=== PATIENT | female | born 1955 | race Caucasian/White ===

== ENCOUNTER 2016-10-13 18:16 | Inpatient (IN) | payer OTHER ==
[~2016-10-13] VITALS: Ht 165.1 cm; Wt 83.0 kg
[~2016-10-13 18:16] MED LIST: ALPR1TAB3 PO; AMIT50TA3 PO; ASPI1TAB69 PO; LEVO-168 PO; METF1000 PO; METO50TA11 PO; NITR1CAP37 PO; OMEP40CA2 PO
[2016-10-13 18:17] VITALS: BP 119/91; PULSE 86; RESP 15; TEMP 98.4; O2SAT 98
[2016-10-13 20:40] VITALS: BP 132/60; PULSE 69; RESP 18; O2SAT 99
[2016-10-13] MEDS ORDERED: SODIUM CHLORID 0.9% 500 ML INJ 500 ML IV ONE (20:45)
[2016-10-13] MEDS ORDERED: METOCLOPRAMIDE INJ 10 MG in SODIUM CHLORIDE 0.9% INJ 50 ML IV ONE (20:45)
[2016-10-13] MEDS ORDERED: MECLIZINE HCL 25 MG TAB PO ONE (20:45)
[2016-10-13 21:11] LABS: AUTOMATED NEUTROPHIL # 1.3 TH/MM3 (1.8-7.7); BASOPHIL % 0.6 % (0.0-2.0); EOSINOPHIL # 0.1 TH/MM3 (0-0.4); EOSINOPHIL % 1.8 % (0.0-4.0); HEMATOCRIT 27.1 % (35.0-46.0); HEMO FLAGS DIFF FINAL; LYMPHOCYTE # 2.7 TH/MM3 (1.0-4.8); MEAN CELL VOLUME 63.5 FL (80.0-100.0); MEAN CORPUSCULAR HEMOGLOBIN 18.3 PG (27.0-34.0); MONO % 10.9 % (0.0-8.0); NEUT % 27.7 % (16.0-70.0); PLATELET COUNT 388 TH/MM3 (150-450); RED BLOOD COUNT 4.27 MIL/MM3 (4.00-5.30); RED CELL DISTRIBUTION WIDTH 19.6 % (11.6-17.2); WHITE BLOOD COUNT 4.6 TH/MM3 (4.0-11.0)
[2016-10-13 21:28] LABS: ANION GAP 7 MEQ/L (5-15); AST (GOT) 21 U/L (15-37); BICARBONATE 23.4 MEQ/L (21.0-32.0); BLOOD UREA NITROGEN 18 MG/DL (7-18); CHLORIDE 108 MEQ/L (98-107); GLOMERULAR FILTRATION RATE 55 ML/MIN (>89); POTASSIUM 4.3 MEQ/L (3.5-5.1); SODIUM (NA) 138 MEQ/L (136-145)
[2016-10-13 21:33] LABS: ALKALINE PHOSPHATASE 106 U/L (45-117); ALT (GPT) 27 U/L (10-53); TOTAL BILIRUBIN ADULT 0.3 MG/DL (0.2-1.0)
[2016-10-13 21:45] LABS: MEAN CORPUSCULAR HGB CONC 28.8 % (32.0-36.0)
[2016-10-13] MEDS ORDERED: PHEN37.52 PO (21:51)
[2016-10-13] MEDS ORDERED: CITA20TA4 PO (21:51)
[2016-10-13] MEDS ORDERED: DICL75TA PO (21:51)
[2016-10-13] MEDS ORDERED: AZEL137S EACH NARE (21:51)
[2016-10-13] MEDS ORDERED: PRED20 PO (21:51)
[2016-10-13] MEDS ORDERED: LISI-515 PO (21:51)
[2016-10-13] MEDS ORDERED: MELO-1 PO (21:51)
[2016-10-13] MEDS ORDERED: FISHCAP4 PO (21:51)
[2016-10-13] MEDS ORDERED: BACT800T5 PO (21:51)
[2016-10-13] MEDS ORDERED: SODIUM CHLOR 0.9% 250 ML INJ 250 ML IV ONE ×2 (22:15)
[2016-10-13] MEDS ORDERED: PANTOPRAZOLE INJ 80 MG in SODIUM CHLORIDE 0.9% INJ 100 ML IV SCH (22:15)
[2016-10-13] MEDS ORDERED: PANTOPRAZOLE INJ 80 MG in SODIUM CHLORIDE 0.9% INJ 35 ML IV ONE (22:15)
--- NOTE | 2016-10-13 22:41 | PD ---
HPI Chief Complaint: Dizziness Time Seen by Provider: 20:16 Travel History International Travel<30 days: No Contact w/Intl Traveler<30days: No Traveled to known affect area: No History of Present Illness HPI Patient is a 61-year-old female comes in complaining of dizziness. She says this is been going on for the past few days. She says she feels like the room is spinning around her. This is worse when she gets up from sleeping or moves around. She also complains of some tingling in her hands and her feet. She was told to come in by her family care doctor who she sees in the [facility]. She has had a slight headache. She occasionally feels palpitations. She denies fever or chills. She has noticed dark stools, but denies seeing Rodri blood. PFSH Past Medical History Anxiety: Yes Depression: Yes Cancer: No Cardiovascular Problems: No Chest Pain: No Diabetes: Yes Patient Takes Glucophage: Yes Diminished Hearing: No Endocrine: No Gastrointestinal Disorders: Yes (GERD) GERD: Yes Genitourinary: Yes (frequency) Hepatitis: No Hiatal Hernia: No Hypertension: Yes Immune Disorder: No Kidney Stones: Yes Musculoskeletal: Yes (ARTHRITIS) Neurologic: No Psychiatric: No Reproductive: No Respiratory: No Immunizations Current: No Migraines: Yes Thyroid Disease: Yes Menopausal: Yes Past Surgical History AICD: No Cholecystectomy: Yes Genitourinary Surgery: Yes (RENAL CALC. EXTRACT., BLADDER SUSP.) Gynecologic Surgery: Yes (PARTIAL HYSTERECTOMY) Hysterectomy: Yes (PARTIAL) Joint Replacement: No Pacemaker: No Other Surgery: Yes (BREAST REDUCTION) Social History Alcohol Use: No Tobacco Use: No Substance Use: No Allergies-Medications (Allergen,Severity, Reaction): Coded Allergies: *MDRO Multi-Drug Resistant Organism (Verified Adverse Reaction, Unknown, ) ESBL+ E. coli urine 09/2014. Reported Meds & Prescriptions Reported Meds & Active Scripts Active Reported Lisinopril 20 Mg Tab 20 Mg PO DAILY Fish Oil + D3 (Fish Oil-Cholecalciferol) 1,200-1,000 Mg-Unit Cap 1 Cap PO DAILY Prednisone 20 Mg Tab 20 Mg PO TID Phentermine HCl 37.5 Mg Tab 1 Tab PO DAILY Diclofenac Sodium DR (Diclofenac Sodium) 75 Mg Tabdr 75 Mg PO BID Meloxicam 15 Mg Tab 15 Mg PO DAILY Dymista Nasal [place] (Azelastine-Fluticasone Nasal [place]) 137-50 Mcg [place] 1 [place] EACH NARE DAILY To each nostril. Bactrim DS (Sulfamethoxazole-Trimethoprim) 800-160 Mg Tab 1 Tab PO BID Citalopram (Citalopram Hydrobromide) 20 Mg Tab 20 Mg PO DAILY Metformin (Metformin HCl) 1,000 Mg Tab 1,000 Mg PO BIDPC With meals Levothyroxine (Levothyroxine Sodium) 112 Mcg Tab 112 Mcg PO DAILY Nitrofurantoin Macrocrystal 50 Mg Cap 50 Mg PO DAILY Alprazolam 1 Mg Tab 1 Mg PO DAILY PRN Omeprazole 40 Mg Cap 40 Mg PO DAILY Metoprolol Succinate ER 24 HR (Metoprolol Succinate) 50 Mg Tab 50 Mg PO BID Amitriptyline (Amitriptyline HCl) 50 Mg Tab 50 Mg PO HS Review of Systems Except as stated in HPI: all other systems reviewed are Neg General / Constitutional: No: Fever, Chills Eyes: Positive: Blurred Vision HENT: Positive: Headaches, Lightheadedness Cardiovascular: Positive: Palpitations, No: Chest Pain or Discomfort Respiratory: No: Shortness of Breath Gastrointestinal: No: Nausea, Vomiting Genitourinary: No: Dysuria Musculoskeletal: No: Edema, Pain Skin: No Rash, No Change in Pigmentation Neurologic: Positive: Dizziness Physical Exam Narrative GENERAL: Awake and alert, in no acute distress. SKIN: Focused skin assessment warm/dry. HEAD: Atraumatic. Normocephalic. EYES: Pupils equal and round. No scleral icterus. No nystagmus. ENT: Mucous membranes pink and moist. NECK: Trachea midline. No JVD. CARDIOVASCULAR: Regular rate and rhythm. No murmur appreciated. RESPIRATORY: No accessory muscle use. Clear to auscultation. Breath sounds equal bilaterally. GASTROINTESTINAL: Abdomen soft, non-tender, nondistended. MUSCULOSKELETAL: No obvious deformities. No clubbing. No cyanosis. No edema. NEUROLOGICAL: Awake and alert. No obvious cranial nerve deficits. Motor grossly within normal limits. Normal speech. Normal cerebellar function testing. PSYCHIATRIC: Appropriate mood and affect; insight and judgment normal. Data Data Last Documented VS Vital Signs Date Time Temp Pulse Resp B/P (MAP) Pulse Ox O2 Delivery O2 Flow Rate FiO2 10/13/16 20:40 69 18 132/60 (84) 99 Room Air 8/28/17 18:17 98.4 Orders Orders Iv Access Insert/Monitor (10/13/16 20:40) Complete Blood Count With Diff (10/13/16 20:40) Comprehensive Metabolic Panel (10/13/16 20:40) Troponin I (10/13/16 20:40) Electrocardiogram (10/13/16 ) Ct Brain W/O Iv Contrast(Rout) (10/13/16 ) Sodium Chlorid 0.9% 500 Ml Inj (Ns 500 M (10/13/16 20:45) Meclizine (Antivert) (10/13/16 20:45) Metoclopramide Inj (Reglan Inj) (10/13/16 20:45) Urinalysis - C+S If Indicated (10/13/16 21:55) Type And Screen (10/13/16 22:07) Red Blood Cells (Rbc) (10/13/16 22:07) Sodium Chlor 0.9% 250 Ml Inj (Ns 250 Ml (10/13/16 22:15) Blood Product Administration .UPON TRANSFUSION (10/13/16 22:07) Sodium Chlor 0.9% 250 Ml Inj (Ns 250 Ml (10/13/16 22:15) Pantoprazole Inj (Protonix Inj) (10/13/16 22:15) Pantoprazole Inj (Protonix Inj) (10/13/16 22:15) Admit Order (Ed Use Only) (10/13/16 ) Admit To Inpatient (10/13/16 ) Vital Signs (Adult) Q4H (10/13/16 22:33) Activity Oob With Assistance (10/13/16 22:33) Waiter/Waitress Third Class / Telemetry .CONTINUOUS (10/13/16 22:33) Diet Npo (10/14/16 Breakfast) Sodium Chloride 0.9% Flush (Ns Flush) (10/13/16 22:45) Sodium Chloride 0.9% Flush (Ns Flush) (10/14/16 09:00) Basic Metabolic Panel (Bmp) (10/14/16 06:00) Complete Blood Count With Diff (10/14/16 06:00) Naloxone Inj (Narcan Inj) (10/13/16 22:45) Inpatient Certification (10/13/16 ) Consult Gastroenterology (10/13/16 ) Labs Laboratory Tests Test 10/13/16 20:55 White Blood Count 4.6 TH/MM3 Red Blood Count 4.27 MIL/MM3 Hemoglobin 7.8 GM/DL Hematocrit 27.1 % Mean Corpuscular Volume 63.5 FL Mean Corpuscular Hemoglobin 18.3 PG Mean Corpuscular Hemoglobin Concent 28.8 % Red Cell Distribution Width 19.6 % Platelet Count 388 TH/MM3 Mean Platelet Volume 7.4 FL Neutrophils (%) (Auto) 27.7 % Lymphocytes (%) (Auto) 59.0 % Monocytes (%) (Auto) 10.9 % Eosinophils (%) (Auto) 1.8 % Basophils (%) (Auto) 0.6 % Neutrophils # (Auto) 1.3 TH/MM3 Lymphocytes # (Auto) 2.7 TH/MM3 Monocytes # (Auto) 0.5 TH/MM3 Eosinophils # (Auto) 0.1 TH/MM3 Basophils # (Auto) 0.0 TH/MM3 CBC Comment DIFF FINAL Differential Comment Blood Urea Nitrogen 18 MG/DL Creatinine 1.02 MG/DL Random Glucose 129 MG/DL Total Protein 7.2 GM/DL Albumin 3.5 GM/DL Calcium Level 9.7 MG/DL Alkaline Phosphatase 106 U/L Aspartate Amino Transf (AST/SGOT) 21 U/L Alanine Aminotransferase (ALT/SGPT) 27 U/L Total Bilirubin 0.3 MG/DL Sodium Level 138 MEQ/L Potassium Level 4.3 MEQ/L Chloride Level 108 MEQ/L Carbon Dioxide Level 23.4 MEQ/L Anion Gap 7 MEQ/L Estimat Glomerular Filtration Rate 55 ML/MIN Troponin I LESS THAN 0.02 NG/ML MDM Medical Decision Making Medical Screen Exam Complete: Yes Emergency Medical Condition: Yes Medical Record Reviewed: Yes Interpretation(s) ECG shows normal sinus rhythm at 67, no ST elevation or depression, normal intervals Differential Diagnosis Anemia versus vertigo versus dehydration versus electrolyte abnormality Narrative Course Patient is a 61-year-old female comes in complaining of dizziness. Exam shows no neurologic abnormalities. IV established, labs sent. Labs show hemoglobin of 7.8. Stool is positive for blood. Patient given IV fluids, meclizine, Reglan. Started on Protonix. We will transfuse one unit of blood. Patient will be admitted for further management. HemaPrompt Point of Care Internal Pos. & Neg. Controls: Passed Fecal Specimen Occult Blood: Positive Diagnosis Primary Impression: Symptomatic anemia Additional Impression: Blood in stool Admitting Information Admitting Physician Requests: Admit Condition: Stable Brianda Christianson MD Oct 13, 2016 22:41
[2016-10-13] MEDS ORDERED: SODIUM CHLORIDE 0.9% FLUSH 10 ML FLUSH IV FLUSH PRN (22:45)
[2016-10-13] MEDS ORDERED: NALOXONE HCL 0.4 MG/ML AMP IV PRN (22:45)
--- NOTE | 2016-10-13 22:48 | RADRPT ---
EXAM DATE/TIME: 10/13/2016 21:06 [place] COMPARISON: No previous studies available for comparison. INDICATIONS : Dizziness, right sided cephalgia. RADIATION DOSE: 56.35 CTDIvol (mGy) MEDICAL HISTORY : None SURGICAL HISTORY : None. ENCOUNTER: Initial ACUITY: 2 days PAIN SCALE: 6/10 LOCATION: cranial TECHNIQUE: Multiple contiguous axial images were obtained of the head. Using automated exposure control and adj ustment of the mA and/or kV according to patient size, radiation dose was kept as low as reasonably a chievable to obtain optimal diagnostic quality images. DICOM format image data is available electro nically for review and comparison. FINDINGS: CEREBRUM: The ventricles are normal for age. No evidence of midline shift, mass lesion, hemorrhage or acute in farction. No extra-axial fluid collections are seen. POSTERIOR FOSSA: The cerebellum and brainstem are intact. The 4th ventricle is midline. The cerebellopontine angle i s unremarkable. EXTRACRANIAL: The visualized portion of the orbits is intact. SKULL: The calvaria is intact. No evidence of skull fracture. CONCLUSION: No acute disease. Parish Marie MD on October 13, 2016 at 22:45 Board Certified Radiologist. This report was verified electronically.
[2016-10-14] VITALS (13 sets, daily range): BP systolic 99–119; BP diastolic 55–78; PULSE 64–74; RESP 16–18; TEMP 97–98.7; O2SAT 95–99
[2016-10-14 02:13] LABS: BACTERIA, URINE RARE /hpf; BLOOD, URINE NEG (NEG); COMMENT (UR) CULTURE INDICATED; CULTURE IF INDICATED CULTURE INDICATED; GLUCOSE,URINE NEG (NEG); KETONE, URINE NEG (NEG); MUCUS URINE FEW /lpf (OCC); NITRITE,URINE NEG (NEG); PH, URINE 5.5 (5.0-8.5); SQUAMOUS EPITHELIAL CELL URINE 1 /hpf (0-5); URINE COLOR LIGHT-YELLOW (YELLW/STRAW)
--- NOTE | 2016-10-14 05:11 | HHI.HP ---
HPI Service [facility] Primary Care Physician Leah Agudelo MD Admission Diagnosis symptomatic anemia, blood in stool Diagnoses: Travel History International Travel<30 Days: No Contact w/Intl Traveler <30 Da: No Traveled to Known Affected Are: No History of Present Illness gate attendant via [place] audio line - Patient reported that she was sent from her PCP office for infection, anemia, calcium being high. She reports that for the past few days since Thursday, she has been having vomiting, shortness of breath, dizziness. She also reports of black stools. She states that her vomitus was also black in color. She was also complaining of abdominal pain which she attributed to gas pain. She denies being on any blood thinners apart from a baby aspirin. She denies taking any [id number] Advil or ibuprofen or NSAIDs. She reports history of GI bleed previously for which she takes omeprazole. However upon further questioning, I am not sure whether patient really meant GI bleed or GI ulcers. She states she did have endoscopy a year ago and at that time after endoscopy, the doctor had given her omeprazole. Her GI doctor is Dr. Aurelio Raya Patient also reports a fever. She states she thinks it is because of her urine infection. She states she was prescribed Bactrim as an outpatient for 7 days' duration. She states it should finish today. However she stopped taking it yesterday because she was not feeling well. Denies cough or diarrhea. Patient came to ER with a clinic visit printed out from the doctor's office. This was reviewed. Patient was also having syncopal episodes in the past few days because of systems generalized weakness. Patient's medications list was extensive. This was gone through with her and multiple medications on her doctor's office list are old and patient is no longer taking them. Med reconciliation was therefore updated. Patient Review of Systems Except as stated in HPI: all other systems reviewed are Neg Past Family Social History Past Medical History htn- but bp has been low at home lately dm acid reflux kidney stones thyroid problem- hypothyroidism no heart problem/ no lung problem/ liver problem/ no kidney problem/ no blood clots/ no cancer Past Surgical History lithotripsy cholecystectomy Allergies: Coded Allergies: *MDRO Multi-Drug Resistant Organism (Verified Adverse Reaction, Unknown, ) ESBL+ E. coli urine 09/2014. Family History father- heart problems 2 brothers- with heart problems Social History used to smoke minimally- but quit completely 3 yrs ago no etoh abuse no drugs Physical Exam Vital Signs Vital Signs Date Time Temp Pulse Resp B/P (MAP) Pulse Ox O2 Delivery O2 Flow Rate FiO2 10/14/16 04:34 98.6 74 16 102/75 95 10/14/16 04:21 10/14/16 03:56 98.4 68 16 108/68 96 10/14/16 03:53 98.6 70 16 110/72 96 10/14/16 02:52 98.2 66 18 109/58 97 10/14/16 02:43 98.6 71 18 104/59 96 10/14/16 02:41 68 18 97 Room Air 10/14/16 02:25 98.7 68 18 104/55 99 10/14/16 02:10 98.2 64 18 99/60 97 10/14/16 02:00 98.1 68 18 106/61 (76) 96 Room Air 10/14/16 01:54 98.1 72 18 115/65 96 10/13/16 20:40 69 18 132/60 (84) 99 Room Air 10/13/16 18:17 98.4 86 15 119/91 (100) 98 Physical Exam GENERAL: This is a well-nourished, well-developed patient, in no apparent distress. SKIN: No rashes, ecchymoses or lesions. Cool and dry. HEAD: Atraumatic. Normocephalic. No temporal or scalp tenderness. EYES: No scleral icterus. No injection or drainage. ENT: Nose without bleeding, purulent drainage or septal hematoma. . Airway patent. NECK: Trachea midline. No JVD CARDIOVASCULAR: Regular rate and rhythm without murmurs, gallops, or rubs. RESPIRATORY: Clear to auscultation. Breath sounds equal bilaterally. No wheezes , rales, or rhonchi. GASTROINTESTINAL: Abdomen soft, non-tender, nondistended.. No guarding. MUSCULOSKELETAL: Extremities without clubbing, cyanosis, or edema. No calf tenderness. NEUROLOGICAL: Awake and alert. Motor and sensory grossly within normal limits. Normal speech. Laboratory Laboratory Tests Test 10/13/16 20:55 10/14/16 00:00 White Blood Count 4.6 Red Blood Count 4.27 Hemoglobin 7.8 Hematocrit 27.1 Mean Corpuscular Volume 63.5 Mean Corpuscular Hemoglobin 18.3 Mean Corpuscular Hemoglobin Concent 28.8 Red Cell Distribution Width 19.6 Platelet Count 388 Mean Platelet Volume 7.4 Neutrophils (%) (Auto) 27.7 Lymphocytes (%) (Auto) 59.0 Monocytes (%) (Auto) 10.9 Eosinophils (%) (Auto) 1.8 Basophils (%) (Auto) 0.6 Neutrophils # (Auto) 1.3 Lymphocytes # (Auto) 2.7 Monocytes # (Auto) 0.5 Eosinophils # (Auto) 0.1 Basophils # (Auto) 0.0 CBC Comment DIFF FINAL Differential Comment Blood Urea Nitrogen 18 Creatinine 1.02 Random Glucose 129 Total Protein 7.2 Albumin 3.5 Calcium Level 9.7 Alkaline Phosphatase 106 Aspartate Amino Transf (AST/SGOT) 21 Alanine Aminotransferase (ALT/SGPT) 27 Total Bilirubin 0.3 Sodium Level 138 Potassium Level 4.3 Chloride Level 108 Carbon Dioxide Level 23.4 Anion Gap 7 Estimat Glomerular Filtration Rate 55 Troponin I LESS THAN 0.02 Urine Color LIGHT-YELLOW Urine Turbidity CLEAR Urine pH 5.5 Urine Specific [place] 1.017 Urine Protein NEG Urine Glucose (UA) NEG Urine Ketones NEG Urine Occult Blood NEG Urine Nitrite NEG Urine Bilirubin NEG Urine Urobilinogen LESS THAN 2.0 Urine Leukocyte Esterase SMALL Urine RBC 2 Urine WBC 11 Urine Squamous Epithelial Cells 1 Urine Amorphous Sediment RARE Urine Bacteria RARE Urine Mucus FEW Microscopic Urinalysis Comment CULTURE INDICATED Date/Time Source Procedure Growth Status 10/14/16 00:00 Urine Clean Catch Urine Culture Pending Received Result Diagram: 10/13/[id number]/[id number] Imaging Last [address] 10/13/16 0000 Signed Impressions: Service Date/Time: Thursday, October 13, 2016 21:06 - CONCLUSION: No acute disease. MD Misty Dover VTE Risk Assessment Caprini VTE Risk Assessment: Mod/High Risk (score >= 2) Caprini Risk Assessment Model Point Value = 1 Point Value = 2 Point Value = 3 Point Value = 5 Age 41-60 Minor surgery BMI > 25 kg/m2 Swollen legs Varicose veins or History of unexplained or recurrent spontaneous Oral contraceptives or hormone replacement Sepsis (< 1 month) Serious lung disease, including pneumonia (< 1 month) Abnormal pulmonary function Acute myocardial infarction Congestive heart failure (< 1 month) History of inflammatory bowel disease Medical patient at bed rest Age 61-74 Arthroscopic surgery Major open surgery (> 45 min) Laparoscopic surgery (> 45 min) Malignancy Confined to bed (> 72 hours) Immobilizing plaster cast Central venous access Age >= 75 History of VTE Family history of VTE Factor V Leiden Prothrombin [id number] Lupus anticoagulant Anticardiolipin antibodies Elevated serum homocysteine Heparin-induced thrombocytopenia Other congenital or acquired thrombophilia Stroke (< 1 month) Elective arthroplasty Hip, pelvis, or leg fracture Acute spinal cord injury (< 1 month) Prophylaxis Regimen Total Risk Factor Score Risk Level Prophylaxis Regimen 0-1 Low Early ambulation 2 Moderate Order ONE of the following: *Sequential Compression Device (SCD) *Heparin 5000 units SQ BID 3-4 Higher Order ONE of the following medications: *Heparin 5000 units SQ TID *Enoxaparin/Lovenox 40 mg SQ daily (WT < 150 kg, CrCl > 30 mL/min) *Enoxaparin/Lovenox 30 mg SQ daily (WT < 150 kg, CrCl > 10-29 mL/min) *Enoxaparin/Lovenox 30 mg SQ BID (WT < 150 kg, CrCl > 30 mL/min) AND/OR *Sequential Compression Device (SCD) 5 or more Highest Order ONE of the following medications: *Heparin 5000 units SQ TID (Preferred with Epidurals) *Enoxaparin/Lovenox 40 mg SQ daily (WT < 150 kg, CrCl > 30 mL/min) *Enoxaparin/Lovenox 30 mg SQ daily (WT < 150 kg, CrCl > 10-29 mL/min) *Enoxaparin/Lovenox 30 mg SQ BID (WT < 150 kg, CrCl > 30 mL/min) AND *Sequential Compression Device (SCD) Assessment and Plan Assessment and Plan impression: Symptomatic anemia Upper GI bleed UTIpartially treated Diabetes htn- but bp has been low at home lately acid reflux kidney stones thyroid problem- hypothyroidism Plan: NPO IV hydration. Patient was transfused 2 units of PRBC. GI consult with Dr. Dr. Aurelio Raya. Protonix IV drip. hold asa DVT prophylaxiswith SCD. GI prophylaxison pantoprazole Discussed Condition With patient, ER MD, nursing staff, counter person on [facility] Physician Certification 2 Midnight Certification Type: Admission for Inpatient Services Order for Inpatient Services The services are ordered in accordance with Medicare regulations or non- Medicare payer requirements, as applicable. In the case of services not specified as inpatient-only, they are appropriately provided as inpatient services in accordance with the 2-midnight benchmark. Estimated LOS (days): 2 days is the estimated time the patient will need to remain in the hospital, assuming treatment plan goals are met and no additional complications. Post-Hospital Plan: Home Jordan De La Torre MD Oct 14, 2016 05:11
[2016-10-14] MEDS ORDERED: GLUCAGON 1 MG/ML VIAL OTHER PRN ×2 (05:30→22:45)
[2016-10-14] MEDS ORDERED: DEXTROSE 50% IN WATER 50 ML VIAL(D50) IV PRN ×2 (05:30→22:45)
[2016-10-14] MEDS ORDERED: ALPRAZolam 1 MG TAB PO PRN (06:00)
[2016-10-14] MEDS: SODIUM CHLORIDE 0.9% FLUSH 10 ML FLUSH IV FLUSH SCH ×2 (09:11→21:39)
[2016-10-14] MEDS: LEVOTHYROXINE SODIUM 112 MCG TAB PO SCH (09:12)
[2016-10-14] MEDS: LISINOPRIL 20 MG TAB PO SCH (09:12)
[2016-10-14] MEDS: METOPROLOL SUCCINATE 50 MG EXTENDED RELEASE TAB PO SCH ×2 (09:12→21:39)
[2016-10-14] MEDS ORDERED: PROPOFOL 200 MG/20 ML AMP IV ONE (10:45)
[2016-10-14 10:59] LABS: AUTOMATED NEUTROPHIL # 1.9 TH/MM3 (1.8-7.7); BASOPHIL % 0.5 % (0.0-2.0); EOSINOPHIL # 0.1 TH/MM3 (0-0.4); EOSINOPHIL % 1.5 % (0.0-4.0); HEMATOCRIT 29.9 % (35.0-46.0); HEMO FLAGS DIFF FINAL; LYMPH % 41.3 % (9.0-44.0); LYMPHOCYTE # 1.7 TH/MM3 (1.0-4.8); MEAN CELL VOLUME 64.7 FL (80.0-100.0); MEAN CORPUSCULAR HEMOGLOBIN 19.4 PG (27.0-34.0); MONO % 10.5 % (0.0-8.0); NEUT % 46.2 % (16.0-70.0); PLATELET COUNT 352 TH/MM3 (150-450); RED BLOOD COUNT 4.63 MIL/MM3 (4.00-5.30); RED CELL DISTRIBUTION WIDTH 21.9 % (11.6-17.2); WHITE BLOOD COUNT 4.1 TH/MM3 (4.0-11.0)
[2016-10-14 11:05] LABS: MEAN CORPUSCULAR HGB CONC 29.9 % (32.0-36.0)
--- NOTE | 2016-10-14 11:11 | MB ---
cc: IZABELA RAYA LOUIS M. MD DATE OF CONSULTATION October 14, [address] De La Torre. REASON FOR CONSULTATION GI bleed HISTORY Charisse is a very pleasant 61-year-old female followed by Dr. Raya for a history of short segment Flores's esophagus. She states that for the past three or four days she was having gas pains in the epigastric area and right upper quadrant and black tarry stools. She states the abdominal pain has subsided. She also had a few episodes of emesis of dark material like coffee-grounds. She does take omeprazole daily and is also on an aspirin daily and states that she has been taking ibuprofen and acetaminophen lately for headaches. Her hemoglobin is 7.8 with a low MCV. PAST MEDICAL HISTORY Her medical history is remarkable for - 1. Flores's esophagus. 2. Hypertension. 3. Diabetes mellitus. 4. Gastroesophageal reflux disease. 5. Kidney stones. 6. Hypothyroidism. PAST SURGICAL HISTORY 1. Cholecystectomy. 2. Lithotripsy. FAMILY HISTORY Remarkable for heart disease. SOCIAL HISTORY The patient used to smoke but about 3 years ago. No significant alcohol intake. ALLERGIES MDRO which is a multidrug resistant organism. REVIEW OF SYSTEMS She denies any chest pain or shortness of breath. No weight loss. Other than the epigastric gas discomfort and black stools and the vomiting and described above, her review of systems is essentially unremarkable. The patient's history was obtained through my limited Sinhala knowledge and through one of the ER nurses, Cynthia, who speaks Sinhala. An official hand worker was requested but I was told the computers are down and could not access that service but, as mentioned above, there was a Sinhala-speaking nurse available. PHYSICAL EXAMINATION GENERAL: Physical exam reveals a well-developed female in no acute distress. VITAL SIGNS: Her blood pressure is 118/57, pulse 72, respirations 18 and nonlabored, temperature is 98 orally. HEENT: Sclerae anicteric. LUNGS: Clear to auscultation and percussion. HEART SOUNDS: Regular without murmur, gallop or rub. ABDOMEN: Soft with minimal upper abdominal tenderness. No rebound or guarding. No palpable masses. No distension. RECTAL: Deferred. No cyanosis, clubbing or edema. SKIN: Warm and dry. She was alert and oriented with a pleasant affect and no gross motor deficits. LABORATORY WORK Hemoglobin 7.8, hematocrit 27.1, platelet count 388,000. Her BUN is only 18 with creatinine of 1.02. Liver enzymes are normal. Electrolytes are unremarkable. Urinalysis does reveal small leukocyte esterase and 11 WBCs and a culture is indicated. IMAGING STUDIES A head CT showed no acute disease. IMPRESSION Three or four days of black tarry stools with anemia and upper abdominal discomfort. Patient with a history short segment Flores's. Last EGD was in January of 2016 and she did have some nodular gastritis with biopsies negative for H. Pylori. Her last colonoscopy appears to have been in July of 2012. The most likely etiology is an NSAID-induced gastropathy. She is hemodynamically stable. PLAN The patient has been n.p.o. and I discussed proceeding with upper endoscopy. I reviewed the procedure with her which she is familiar with and informed consent obtained. Further disposition will depend upon the findings. I will follow her H&H and transfuse if necessary. MD ADDISON Jain/ALEXANDER /9:40 AM /10:52 AM TOI
[2016-10-14 11:20] LABS: POTASSIUM 4.3 MEQ/L (3.5-5.1)
--- NOTE | 2016-10-14 11:26 | HHI.GIFU ---
GI Follow-up Note Consult Follow-up EGD shows stable appearing nodular antral gastritis, a few small Jamil erosions, 5cm hiatal hernia and short segment Flores's esophagus with mild nodularity,biopsied. Duodenum normal. No active bleeding. Rec continue oral PPI, advance diet, avoid all NSAIDS and f/u with Dr Raya to consider outpt colonoscopy. Entered by: Edd Ibarra MD Oct 14, 2016 11:26
--- NOTE | 2016-10-14 11:35 | GIPROC ---
[facility] [address] [facility]. [facility], [address] EGD PROCEDURE REPORT EXAM DATE: 10/14/2016 PATIENT NAME: Charisse Dyson MR #: [id number] BIRTHDATE: 1955 ATTENDING: Edd White MD ORDER #: [id number] TECHNOLOGY RESOURCE TEACHER: Neto Zazueta and Lucretia Willis STATUS: inpatient INDICATIONS: The patient is a 61 yr old female here for an EGD due to acute post hemorrhagic anemia and melena PROCEDURE PERFORMED: EGD w/ biopsy MEDICATIONS: None and Per Anesthesia. TOPICAL ANESTHETIC: none CONSENT: The patient understands the risks and benefits of the procedure and understands that these risks include, but are not limited to: sedation, allergic reaction, infection, perforation and/or bleeding. Alternative means of evaluation and treatment include, among others: physical exam, x-rays, and/or surgical intervention. The patient elects to proceed with this endoscopic procedure. medical equipment was checked for proper function. Hand hygiene and appropriate measures for infection prevention was taken. After the risks, benefits and alternatives of the procedure were thoroughly explained, Informed consent was verified, confirmed and timeout was successfully executed by the treatment team. The patient was anesthetized with topical anesthesia and the Pentax EG-[id number] endoscope was introduced through the mouth and advanced to the second portion of the duodenum. Retroflexed views revealed a hiatal hernia The gastroscope was then slowly withdrawn and removed. ESOPHAGUS: There was a 1cm segment of Flores's esophagus found at the gastroesophageal junction. Slight nodularity. Multiple biopsies were performed using cold forceps. Sample sent for histology. A few small linear Jamil lesions seen. STOMACH: There was moderate gastritis in the gastric antrum. Multiple biopsies were performed. A 4 cm hiatal hernia was noted. DUODENUM: The duodenal mucosa appeared normal. ADVERSE EVENTS: There were no complications. IMPRESSIONS: 1. There was a 1cm segment of Flores's esophagus found at the gastroesophageal junction; multiple biopsies were performed 2. A few small linear Jamil lesions seen 3. There was gastritis in the gastric antrum; multiple biopsies were performed 4. 4 cm hiatal hernia 5. Normal duodenal mucosa 6. Retroflexed views revealed a hiatal hernia RECOMMENDATIONS: 1. Await biopsy results. Biopsy results will not be ready for 7-10 days. If you don't hear from us in two weeks, call our office for biopsy results. 2. Protonix 40mg Q AM 3. Avoid NSAIDS 4. Resume oral diet PATIENT CONDITION: stable DISPOSITION: Observation REPEAT EXAM: EGD pending biopsy results Edd White MD eSigned: Edd White MD 10/14/2016 11:34 AM cc: PATIENT NAME: Charisse Dyson MR#: [id number]
[2016-10-14] MEDS: PANTOPRAZOLE SOD 40 MG DELAYED RELEASE TAB PO SCH (13:05)
--- NOTE | 2016-10-14 13:19 | EKG ---
Date Performed: 10/13/2016 Time Performed: 20:47:09 PTAGE: 61 years EKG: Sinus rhythm NORMAL ECG PREVIOUS TRACING : 07/17/2015 11.29 Compared to prior tracing no significant change DOCTOR: Evelia Zepeda Interpretating Date/Time 10/14/2016 13:17:51
[2016-10-14] MEDS ORDERED: AMITRIPTYLINE HCL 50 MG TAB PO SCH (21:00)
[2016-10-15] VITALS: BP 121/68; PULSE 68; RESP 18; TEMP 97.8; O2SAT 94
[2016-10-15 00:14] VITALS: PULSE 67
[2016-10-15 04:00] VITALS: BP 110/71; PULSE 66; RESP 17; TEMP 97.5; O2SAT 95
[2016-10-15 04:17] VITALS: PULSE 61
[2016-10-15] MEDS: LEVOTHYROXINE SODIUM 112 MCG TAB PO SCH (05:39)
[2016-10-15 07:50] VITALS: BP 127/81; PULSE 63; RESP 20; TEMP 97.9; O2SAT 97
[2016-10-15] MEDS: METOPROLOL SUCCINATE 50 MG EXTENDED RELEASE TAB PO SCH (09:05)
[2016-10-15] MEDS: SODIUM CHLORIDE 0.9% FLUSH 10 ML FLUSH IV FLUSH SCH (09:06)
[2016-10-15] MEDS: PANTOPRAZOLE SOD 40 MG DELAYED RELEASE TAB PO SCH (09:06)
[2016-10-15] MEDS: LISINOPRIL 20 MG TAB PO SCH (09:06)
--- NOTE | 2016-10-15 09:13 | HHI.PR ---
Subjective Remarks Follow-up with GI bleed/abdominal pain 10/15/16-patient seen and examined, denies any abdominal pain and tolerated by mouth without any complication nausea and vomiting. H&H stable and patient denies any recurrent GI bleed. Objective Vitals Vital Signs Date Time Temp Pulse Resp B/P (MAP) Pulse Ox O2 Delivery O2 Flow Rate FiO2 10/15/16 04:17 61 10/15/16 04:00 97.5 66 17 110/71 (84) 95 10/15/16 00:14 67 10/15/16 00:00 97.8 68 18 121/68 (85) 94 10/14/16 20:00 97.0 69 17 116/67 (83) 98 10/14/16 15:46 97.6 70 18 119/78 (92) 97 10/14/16 12:05 97.3 67 18 150/72 (98) 96 10/14/16 11:37 97.1 72 18 118/65 (82) 96 I/O 10/14/16 10/14/16 10/14/16 10/15/16 10/15/16 10/15/16 07:00 15:00 23:00 07:00 15:00 23:00 Intake Total 1553 ml 200 ml 240 ml Output Total 200 ml 350 ml Balance 1553 ml 200 ml -200 ml -110 ml Intake Oral 250 ml 240 ml IV Total 368 ml Packed Cells 583 ml Blood Product IV Normal Saline Flush 352 ml Other 200 ml Output Urine Total 200 ml 350 ml # Voids 5 Result Diagram: 10/14/16 1050 10/14/16 1050 Imaging Last Impressions Head CT 10/13/16 0000 Signed Impressions: Service Date/Time: Thursday, October 13, 2016 21:06 - CONCLUSION: No acute disease. Parish Marie MD Objective Remarks GENERAL: NAD SKIN: Warm and dry. HEAD: Normocephalic. EYES: No scleral icterus. No injection or drainage. NECK: Supple, trachea midline. No JVD or lymphadenopathy. CARDIOVASCULAR: Regular rate and rhythm without murmurs, gallops, or rubs. RESPIRATORY: Breath sounds equal bilaterally. No accessory muscle use. GASTROINTESTINAL: Abdomen soft, non-tender, nondistended. MUSCULOSKELETAL: No cyanosis, or edema. BACK: Nontender without obvious deformity. No CVA tenderness. Procedures EGD shows stable appearing nodular antral gastritis, a few small Jamil erosions, 5cm hiatal hernia and short segment Flores's esophagus with mild nodularity,biopsied. Duodenum normal. No active bleeding. A/P Problem List: (1) GI bleed ICD Code: K92.2 - Gastrointestinal hemorrhage, unspecified (2) GI bleed due to NSAIDs ICD Code: K92.2 - Gastrointestinal hemorrhage, unspecified; T39.395A - Adverse effect of other nonsteroidal anti-inflammatory drugs [NSAID], initial encounter (3) Anemia due to blood loss, acute ICD Code: D62 - Acute posthemorrhagic anemia (4) Symptomatic anemia ICD Code: D64.9 - Anemia, unspecified Status: Acute Assessment and Plan 61-year-old female with GI bleed due to NSAID -Appreciate input from gastroenterology -Status post EGD with finding of stable appearing nodular antral gastritis, a few small Jamil erosions, 5cm hiatal hernia and short segment Flores's esophagus with mild nodularity,biopsied.Duodenum normal. No active bleeding. -Continue PPI, avoid NSAIDs -Outpatient follow-up for colonoscopy Symptomatic anemia Anemia of acute blood loss Transfused 2 units packed red blood cell History of diabetes type 2, hypertension, hypothyroidism Continue outpatient medications DVT prophylaxis: Chemical anti-prophylaxis contraindicated due to GI bleed, bilateral SCDs Discharge Planning Discharge patient to home Condition on discharge: Improved Regular Diet as tolerated Ad Denise activity Rx written:none Follow-up with primary care physician in 1 week Gastroenterology in 1-2 weeks Jin Cristina MD Oct 15, 2016 09:13
[2016-10-15] MEDS ORDERED: PNEUMOCOCCAL POLYVALENT INJ 25 MCG/0.5 ML SYR IM ONE (10:00)
[2016-10-15] MEDS ORDERED: INFLUENZA VIRUS VACCINE (QUADRIVALENT) 0.5 ML SYR IM ONE (10:00)
[2016-12-01] MEDS ORDERED: AUGM500T7 PO (16:42)
== END 2016-10-15 11:39 | disposition home or self-care (01) | DRG 378 ==
LOC: NEPD 18:16 → NEDA 22:33 → NEDH 10-14 02:33 → NEPHCDU 10-14 03:56 → HOCA 10-14 18:39
PROVIDERS: ADMIT Hospitalist; ATTEND Hospitalist
PROC: 0DB38ZX Excision of Lower Esophagus, Via Natural or Artificial Opening Endoscopic, Diagnostic (ICD-10-PCS; 2016-10-14)
PROC: 0DB68ZX Excision of Stomach, Via Natural or Artificial Opening Endoscopic, Diagnostic (ICD-10-PCS; 2016-10-14)
PROC: 30233N1 Transfusion of Nonautologous Red Blood Cells into Peripheral Vein, Percutaneous Approach (ICD-10-PCS; principal; 2016-10-14 11:06)
DX: K92.2 Gastrointestinal hemorrhage, unspecified (principal); N39.0 Urinary tract infection, site not specified; K22.10 Ulcer of esophagus without bleeding; I10 Essential (primary) hypertension; D62 Acute posthemorrhagic anemia; E11.9 Type 2 diabetes mellitus without complications; E03.9 Hypothyroidism, unspecified; K21.9 Gastro-esophageal reflux disease without esophagitis; K22.70 Barrett's esophagus without dysplasia; K44.9 Diaphragmatic hernia without obstruction or gangrene; K29.60 Other gastritis without bleeding; T39.395A Adverse effect of other nonsteroidal anti-inflammatory drugs [NSAID], initial encounter; Z79.84 Long term (current) use of oral hypoglycemic drugs; Z79.52 Long term (current) use of systemic steroids; Z87.442 Personal history of urinary calculi; Z87.891 Personal history of nicotine dependence
CPT/HCPCS: 36430; 70450; 80048; 80053; 81001; 82948; 84484; 85025; 86850; 86900; 86901; 86920; 87086; 88305; 88312; 93005; 96365; C9113; J2765; J7040; J7050; P9016